=== PATIENT | male | born 1995 | race American Indian/Alaskan Native ===

== ENCOUNTER 2020-02-29 10:54 | Emergency (ER) | payer SELFPAY ==
[2020-02-29] MEDS ORDERED: ZIPRASIDONE MESYLATE 20 MG VIAL IM ONE (11:08)
[2020-02-29 12:29] LABS: Basophils % (Auto) 0.2 % (0.0-1.8); Eosinophils % (Auto) 0.1 % (0.0-4.3); Hematocrit 42.8 % (35.5-45.6); Hemoglobin 14.3 gm/dl (11.8-15.2); Lymphocytes # (Auto) 0.8 K/mm3 (1.2-5.4); Lymphocytes % (Auto) 9.7 % (13.4-35.0); Mean Corpuscular HGB Conc 34 % (32-34); Mean Corpuscular Volume 87 fl (84-94); Monocytes # (Auto) 0.6 K/mm3 (0.0-0.8); Monocytes % (Auto) 7.2 % (0.0-7.3); Platelet Count 224 K/mm3 (140-440); Red Blood Count 4.92 M/mm3 (3.65-5.03); Red Cell Distribution Width 14.1 % (13.2-15.2)
[2020-02-29 12:46] LABS: Alanine Aminotransferase 17 units/L (7-56); Albumin 4.6 g/dL (3.9-5); BUN/Creatinine Ratio 11; Blood Urea Nitrogen 9 mg/dL (9-20); Calcium 9.8 mg/dL (8.4-10.2); Hemolysis Index 6
--- NOTE | 2020-02-29 13:27 | Emergency Department Report ---
ED Psych HPI - General Chief Complaint: Psych Stated Complaint: PSYCH EVAL Time Seen by Provider: 02/29/20 11:06 Source: family, EMS Mode of arrival: Stretcher Limitations: Altered Mental Status - History of Present Illness Initial Comments: Chief complaint: "He is having a mental break." HPI: This is a 24-year-old male without significant past medical history who presents with abnormal behavior over the past 11 months. Behavior escalated today. History unobtainable from patient due to agitation. History obtained by both parents with whom he lives. Father noticed that his son was missing several days at work. He had a job with [employer] last year. He was terminated from his job in March. Since that time he has been mostly reclusive at home. He sleeps throughout the day. He is up at night playing video games or surfing the Internet. He had been a voracious reader. 3 months ago mother noticed that he became hyper samaritan. He seemed obsessed with his Bible. 3 months ago he stopped reading other material. He stopped watching videos. He stopped playing video games. Today he hugged his parents really hard. He kept Speaking about Kwame. He kept repeating that he loved his parents. Today he punched a hole in the wall. Mother stated that he punched a hole in a wall on previous occasion. Parents cannot recall statements regarding harming himself or others. Patient does not leave the home. Consequently drug use would be highly unlikely. Father has a paternal aunt with history of severe mental illness. She lives in a mental health facility for 50+ years. Father has a brother who recovered from heroin addiction. Father states that several paternal relatives have had "nervous breakdowns." Patient arrived via EMS. Complaint: altered mental status -: month(s) (Worse over the last several months) Associated Psychiatric Symptoms: racing thoughts, auditory hallucinations Quality: constant Improves With: none Worsens With: none Context: not taking psychiatric Treatments Prior to Arrival: other (Patient was transported via EMS) - Related Data Allergies Allergy/AdvReac Type Severity Reaction Status Date / Time No Known Allergies Allergy Unverified 02/29/20 11:19 ED Review of Systems ROS: Stated complaint: PSYCH EVAL Other details as noted in HPI Comment: Unobtainable due to pts medical conditions (Acute agitation) ED Past Medical Hx - Past Medical History Previous Medical History?: No - Surgical History Past Surgical History?: No - Social History Smoking Status: Never Smoker Substance Use Type: None ED Physical Exam - General Limitations: Altered Mental Status General appearance: alert, other (Agitated, continues to say "come on, come on" appears to be responding to internal stimuli, appears tormented) - Head Head exam: Present: atraumatic, normocephalic - Eye Eye exam: Present: normal appearance. Absent: scleral icterus, conjunctival i njection - ENT ENT exam: Present: mucous membranes moist - Neck Neck exam: Present: normal inspection, full ROM - Respiratory Respiratory exam: Present: normal lung sounds bilaterally. Absent: respiratory distress, wheezes, rales, rhonchi - Cardiovascular Cardiovascular Exam: Present: normal rhythm, tachycardia, normal heart sounds. Absent: systolic murmur, diastolic murmur, rubs, gallop - GI/Abdominal GI/Abdominal exam: Present: soft, normal bowel sounds. Absent: distended, tenderness, guarding, rebound - Rectal Rectal exam: Present: deferred - Extremities Exam Extremities exam: Present: normal inspection - Back Exam Back exam: Present: normal inspection - Neurological Exam Neurological exam: Present: altered - Psychiatric Psychiatric exam: Present: agitated, other (poor eye contact, appears to be responding to internal stimuli) - Skin Skin exam: Present: warm, dry, intact, normal color. Absent: rash ED Course Vital Signs 02/29/20 02/29/20 11:07 12:14 Temperature 99.8 F H Pulse Rate 142 H Respiratory 22 22 Rate Blood Pressure 120/90 [Right] O2 Sat by Pulse 100 Oximetry ED Medical Decision Making - Lab Data Result diagrams: 02/29/20 12:01 02/29/20 12:01 Mr. Hinojosa is a 24 yo male who presents with new onset psychosis. Patient has been hyper-samaritan. He is currently responding to internal stimuli. He required chemical restraint upon arrival. Considerations: schizophrenia, bipola r affective disorder, drug-induced psychosis I have reviewed labs. All labs are within normal limits. THis patient is medically clear for psychiatric care. I do not detect a medical condition which needs treatment or stabilization. Patient will required inpatient stabilization. 1013 form completed to initiate involuntary hold. Critical care attestation.: If time is entered above; I have spent that time in minutes in the direct care of this critically ill patient, excluding procedure time. ED Disposition Clinical Impression: Acute psychosis Disposition: DC-[id number] OP ADMIT IP TO THIS HOSP Is pt being admited?: Yes Does the pt Need Aspirin: No Condition: Stable
[2020-02-29 18:31] LABS: Bilirubin,Urine NEG (Negative); Blood,Urine NEG (Negative); Color,Urine Yellow (Yellow); Mucus,Urine 1+ /HPF; Protein,Urine <15 mg/dL mg/dL (Negative); Urobilinogen,Urine < 2.0 mg/dL (<2.0)
[2020-02-29 18:37] LABS: Amphetamine Screen,Urine PRESUMPTIVE NEGATIVE; Benzodiazepines Screen,Urine PRESUMPTIVE NEGATIVE; Cannabinoid Screen,Urine PRESUMPTIVE NEGATIVE; Cocaine Screen,Urine PRESUMPTIVE NEGATIVE; Methadone Screen,Urine PRESUMPTIVE NEGATIVE; Opiate Screen,Urine PRESUMPTIVE NEGATIVE
[2020-02-29] MEDS ORDERED: POTASSIUM CHLORIDE ER 20 MEQ TAB PO ONE (20:42)
[2020-02-29] MEDS ORDERED: POTASSIUM CHLORIDE ER 10 MEQ TAB PO ONE (20:42)
--- NOTE | 2020-03-01 10:06 | Consultation ---
History of Present Illness - Reason for Consult Consult date: 03/01/20 Reason for consult: Acute psychosis - History of Present Psychiatric Illness Shekhar Hinojosa is a 24y/o male patient who is not previously known to me. The patient presented to the ER with behaviors that had been going on for about a year before escalating today. The patient was said to be hyper-yarsani, reclusive, constantly talking about Kwame, punched a hole in the wall. During my interview with the patient today, he is lying down. He is a/ox 3. He is calm and cooperative. He makes fair eye contact. The patient states he was brought to the ER because "I had an episode." He says "I started really getting into sikh and rather or not I was in good standing with God." He verbalizes kumar ucinations, that at times "it feels like a version of myself if standing behind me." The patient also says he "feels paranoid." He denies SI/HI, but states "about three years ago I felt that way." He denies ever seeing a psychiatrist or ever being diagnosed with any psych conditions. The patient denies any illicit drug use, alcohol or nicotine. He says "I think I need someone to talk to." The patient says "I have so many thoughts in my head and I can't talk to my family because they think it's hyper-yarsani." I inform the patient that it is best he goes inpatient for awhile. The patient burst into laughter. When asking him why was he laughing, he says, "thank you. I really need someone to talk to. This is too much." PAST PSYCHIATRIC HISTORY: Diagnoses: Denies Suicide attempts or Self-harm behavior: Denies Prior psychiatric hospitalizations: Denies Substance Abuse history: Denies Previous psychiatric medications tried: Denies Outpatient treatment: Denies PAST MEDICAL HISTORY: None reported Family Psychiatric History: None reported or documented SOCIAL HISTORY Marital Status: Single Living Arrangements: With parents Employment Status: Unemployed Access to guns/weapons: Denies Education: Technical school History of Abuse: denies Legal History: denies ROS: Constitutional: Negative for weight loss ENT: Negative for stridor Respiratory: Negative for cough or hemoptysis All other systems reviewed and are negative MENTAL STATUS General Appearance and Behavior: age appropriate, fair eye contact, calm, cooperative Cooperation: Cooperative Psychomotor Behavior: within normal limits Mood: "paranoid" Affect and affective range: incongruent, laughs inappropriately at end of interview, restricted Thought Process: goal directed Thought Content: Illogical Speech: Normal volume and Regular rate and rhythm Suicidal Ideation: Denies Homicidal Ideation: Denies Hallucinations: Yes Delusions: Yes, paranoid Impulse Control: Limited Insight and Judgment: Limited Memory: Limited Attention: Limited Orientation: alert and oriented - Psychiatric problem (1) Acute Psychosis Current Visit: Yes Status: Acute RECOMMENDATIONS MEDICATIONS: Start Risperidon 0.25mg po BID Start Depakote DR 125mg po BID Start Trazodone 50mg po qhs Risks, benefits and alternatives of medications discussed with the patient, questions answered and consent obtained from patient. 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 DISPOSITION: Recommend acute inpatient psychiatric treatment LEGAL STATUS: 1013 FOLLOW-UP: Will follow Medications and Allergies Allergies Allergy/AdvReac Type Severity Reaction Status Date / Time No Known Allergies Allergy Unverified 02/29/20 11:19 Mental Status Exam - Vital signs Last Vital Signs Temp 97.8 F 03/01/20 07:39 Pulse 80 03/01/20 07:39 Resp 20 03/01/20 07:39 BP 137/84 03/01/20 07:39 Pulse Ox 96 03/01/20 07:39 Results Result Diagrams: 02/29/20 12:01 03/01/20 03:49 Abnormal lab results 02/29/20 02/29/20 02/29/20 Range/Units 12:01 12:01 12:01 Lymph % (Auto) 9.7 L (13.4-35.0) % Lymph # (Auto) 0.8 L (1.2-5.4) K/mm3 Seg Neutrophils % 82.8 H (40.0-70.0) % Potassium 3.3 L (3.6-5.0) mmol/L Carbon Dioxide 18 L (22-30) mmol/L Glucose 108 H (75-100) mg/dL Salicylates < 0.3 L (2.8-20.0) mg/dL Acetaminophen (10.0-30.0) ug/mL 02/29/20 Range/Units 12:01 Lymph % (Auto) (13.4-35.0) % Lymph # (Auto) (1.2-5.4) K/mm3 Seg Neutrophils % (40.0-70.0) % Potassium (3.6-5.0) mmol/L Carbon Dioxide (22-30) mmol/L Glucose (75-100) mg/dL Salicylates (2.8-20.0) mg/dL Acetaminophen 5.0 L (10.0-30.0) ug/mL All other labs normal.
[2020-03-01] MEDS ORDERED: risperiDONE 0.25 MG TAB PO SCH (11:00)
[2020-03-01] MEDS ORDERED: DIVALPROEX DR 125 MG TAB PO SCH (11:00)
[2020-03-01] MEDS ORDERED: NALOXONE 2 MG/2 ML INJ ONE (12:04)
[2020-03-01 21:09] VITALS: BP 117/74
[2020-03-01] MEDS ORDERED: traZODone 50 MG TAB PO SCH (22:00)
== END 2020-03-01 22:00 | disposition admitted as inpatient to this hospital (09) ==
LOC: ED 10:54
DX: F23 Brief psychotic disorder (principal)
CPT/HCPCS: 36415; 80053; 80307; 81001; 84132; 84443; 85025; 96372; 99285; J3486; 80320; G0480; J2310

== ENCOUNTER 2021-09-25 11:10 | Emergency (ER) | payer SELFPAY ==
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
[2021-09-25 12:11] LABS: BUN/Creatinine Ratio 11; Blood Urea Nitrogen 9 mg/dL (9-20); Calcium 9.4 mg/dL (8.4-10.2); Hemolysis Index 7
[2021-09-25 13:36] LABS: Basophils % (Auto) 0.4 % (0.0-1.8); Eosinophils % (Auto) 0.4 % (0.0-4.3); Hematocrit 45.8 % (35.5-45.6); Hemoglobin 14.8 gm/dl (11.8-15.2); Lymphocytes # (Auto) 1.1 K/mm3 (1.2-5.4); Lymphocytes % (Auto) 15.4 % (13.4-35.0); Mean Corpuscular HGB Conc 32 % (32-34); Mean Corpuscular Volume 89 fl (84-94); Monocytes # (Auto) 0.5 K/mm3 (0.0-0.8); Monocytes % (Auto) 7.1 % (0.0-7.3); Platelet Count 269 K/mm3 (140-440); Red Blood Count 5.15 M/mm3 (3.65-5.03); Red Cell Distribution Width 14.1 % (13.2-15.2)
[2021-09-26 00:36] LABS: Mucus,Urine 3+ /HPF
[2021-09-26 00:39] LABS: Amphetamine Screen,Urine PRESUMPTIVE NEGATIVE; Benzodiazepines Screen,Urine PRESUMPTIVE NEGATIVE; Cannabinoid Screen,Urine PRESUMPTIVE NEGATIVE; Cocaine Screen,Urine PRESUMPTIVE NEGATIVE; Methadone Screen,Urine PRESUMPTIVE NEGATIVE; Opiate Screen,Urine PRESUMPTIVE NEGATIVE
[2021-09-26 00:40] LABS: Bilirubin,Urine Negative (Negative); Blood,Urine Negative (Negative); Color,Urine Yellow (Yellow)
[2021-09-26 00:41] LABS: Protein,Urine <15 mg/dL mg/dL (Negative); Urobilinogen,Urine < 2.0 mg/dL (<2.0)
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
[2021-09-26] MEDS: risperiDONE 1 MG TAB PO SCH ×2 (11:00→22:05)
[2021-09-26 20:32] VITALS: BP 125/76
[2021-09-26] MEDS ORDERED: DOXEPIN 10 MG CAP PO SCH (22:00)
== END 2021-09-27 11:37 ==
LOC: EEVIPCON 11:10 → ED 11:10
DX: R45.850 Homicidal ideations (principal); F20.9 Schizophrenia, unspecified; Z20.822 Contact with and (suspected) exposure to COVID-19
CPT/HCPCS: 36415; 80048; 80307; 81001; 85025; 87086; 99285; U0003; 80320; G0480

== ENCOUNTER 2021-10-06 22:38 | Emergency (ER) | payer BC ==
[2021-10-06 23:58] VITALS: BP 144/95
--- NOTE | 2021-10-07 02:47 | XRay Report ---
NECK SOFT TISSUE 2 VIEW(S) INDICATION / CLINICAL INFORMATION: Difficulty swallowing COMPARISON: None available. FINDINGS: EPIGLOTTIS: No significant abnormality. RETROPHARYNGEAL SOFT TISSUES: No significant abnormality. AIRWAY: No significant abnormality. RADIOPAQUE FOREIGN BODY: None. SKELETAL SYSTEM: No significant abnormality. ADDITIONAL FINDINGS: None. IMPRESSION: 1. No significant abnormality. Signer Name: Antoni Mendez II, MD Signed: 10/07/2021 2:42 AM Workstation Name: [id number]
--- NOTE | 2021-10-07 04:18 | Emergency Department Report ---
ED ENT HPI - General Chief complaint: Sore Throat Stated complaint: CANT SWALLOW Time Seen by Provider: 10/06/21 23:11 Source: patient Mode of arrival: Ambulatory Limitations: No Limitations - History of Present Illness Initial comments: Patient is a 25-year-old male presenting to ED with complaint of difficulty swallowing since yesterday. States he has been taking Invega for the past several days. He denies fever or chills. - Related Data Home Medications Medication Instructions Recorded Confirmed Last Taken No Known Home Medications [No 09/25/21 09/25/21 Unknown Reported Home Medications] Allergies Allergy/AdvReac Type Severity Reaction Status Date / Time No Known Allergies Allergy Verified 09/25/21 11:26 ED Dental HPI - General Chief complaint: Sore Throat Stated complaint: CANT SWALLOW Time Seen by Provider: 10/06/21 23:11 Source: patient Mode of arrival: Ambulatory Limitations: No Limitations - Related Data Home Medications Medication Instructions Recorded Confirmed Last Taken No Known Home Medications [No 09/25/21 09/25/21 Unknown Reported Home Medications] Allergies Allergy/AdvReac Type Severity Reaction Status Date / Time No Known Allergies Allergy Verified 09/25/21 11:26 ED Review of Systems ROS: Stated complaint: CANT SWALLOW Other details as noted in HPI Constitutional: denies: chills, fever ENT: other (Dysphagia) Respiratory: denies: cough, shortness of breath, wheezing Cardiovascular: denies: chest pain, palpitations Gastrointestinal: denies: abdominal pain, nausea, diarrhea Musculoskeletal: denies: back pain, joint swelling, arthralgia Skin: denies: rash, lesions Neurological: denies: headache, weakness, paresthesias ED Past Medical Hx - Social History Smoking Status: Never Smoker Substance Use Type: None - Medications Home Medications: Home Medications Medication Instructions Recorded Confirmed Last Taken Type No Known Home Medications [No 09/25/21 09/25/21 Unknown History Reported Home Medications] ED Physical Exam - General Limitations: No Limitations General appearance: alert, in no apparent distress - ENT ENT exam: Present: normal exam, normal orophraynx, mucous membranes moist - Neck Neck exam: Present: normal inspection - Respiratory Respiratory exam: Present: normal lung sounds bilaterally. Absent: respiratory distress - Cardiovascular Cardiovascular Exam: Present: regular rate, normal rhythm, normal heart sounds - GI/Abdominal GI/Abdominal exam: Present: soft. Absent: distended, tenderness - Neurological Exam Neurological exam: Present: alert, oriented X3 - Psychiatric Psychiatric exam: Present: normal affect, normal mood - Skin Skin exam: Present: warm, dry, intact, normal color ED Course Vital Signs 10/06/21 23:02 Temperature 99.1 F Pulse Rate 107 H Respiratory 16 Rate Blood Pressure 144/95 O2 Sat by Pulse 98 Oximetry ED Medical Decision Making - Medical Decision Making Physical exam unremarkable. Rapid strep and x-ray soft tissue neck unremarkable. Patient stable for discharge home with return precautions Critical care attestation.: If time is entered above; I have spent that time in minutes in the direct care of this critically ill patient, excluding procedure time. ED Disposition Clinical Impression: Dysphagia Disposition: 01 HOME / SELF CARE / HOMELESS Is pt being admited?: No Does the pt Need Aspirin: No Condition: Stable Instructions: Dysphagia Referrals: MIKE CRENSHAW MD [Primary Care Provider] - 3-5 Days Time of Disposition: 04:18
== END 2021-10-07 04:32 | disposition home or self-care (01) ==
LOC: ED 22:38
DX: R13.10 Dysphagia, unspecified (principal)
CPT/HCPCS: 70360; 87116; 87430; 99283